=== PATIENT | female | born 1980 | race Caucasian/White ===

== ENCOUNTER 2020-07-18 20:58 | Emergency (ER) | payer OTHER ==
[~2020-07-18] VITALS: Ht 177.8 cm; Wt 112.1 kg
[~2020-07-18 20:58] MED LIST: ALBU2.5V5 IH; ALBU2.5V8 INH; EXCEDRIN MIGRAINE PO; FLUT1DIS3 INH; HYDR-3165 PO; HYDR1TAB10 PO; LISI10TA16 PO; LOSA50TA86 PO; PANT40TA6 PO; SERT100T PO
--- NOTE | 2020-07-18 21:17 | PHYS DOC ---
Past History Past Medical History: Arthritis, Asthma, Bipolar, GERD, Hypertension, Migraines, Other Past Surgical History: , Tubal ligation, Other Smoking: Less than 1pk/day Alcohol Use: Occasionally Drug Use: None Adult General Chief Complaint Chief Complaint: WRIST PAIN HPI HPI Patient is a 40-year-old female who presents with left wrist pain. States she works at [employer], and was packing some bags earlier this morning about 1030 and began to have left wrist pain. States that the pain is approximately 5 out of 10, dull and achy in nature and feels it down in her hand. Denies any traumas. Review of Systems Review of Systems Review of systems otherwise unremarkable except noted in HPI Allergies Allergies Allergies Coded Allergies Type Severity Reaction Last Updated Verified Penicillins Allergy Severe 07/18/20 Yes shellfish derived Allergy Severe Swelling 04/14/13 Yes topiramate Adverse Reaction Severe other 04/14/13 Yes Physical Exam Physical Exam Constitutional: Well developed, well nourished, no acute distress, non-toxic appearance. [] Extremities: No tenderness, no cyanosis, no clubbing, ROM intact, no edema. [] Neurologic: Alert and oriented X 3, normal motor function, normal sensory function, no focal deficits noted. [] Psychologic: Affect normal, judgement normal, mood normal. [] EKG EKG [] Radiology/Procedures Radiology/Procedures [] Heart Score C/O Chest Pain: No Risk Factors: Risk Factors: DM, Current or recent (<one month) smoker, HTN, HLP, family history of CAD, obesity. Risk Scores: Risk Factors: DM, Current or recent (<one month) smoker, HTN, HLP, family history of CAD, obesity. Course & Med Decision Making Course & Med Decision Making Patient is a 40-year-old female who presents with left wrist pain Vital signs not concerning. Physical exam noted above. Given Tylenol, ibuprofen and ice pack. Imaging not concerning. Discussed pain management at home. Placed in wrist brace for comfort. Advised to follow-up with primary care physician sometime this week for a follow-up visit. Gave return precautions to the ED. Patient grateful, verbalized understanding and agreed with plan of discharge. [] Dragon Disclaimer Dragon Disclaimer This electronic medical record was generated, in whole or in part, using a voice recognition dictation system. Departure Departure: Impression: Primary Impression: Wrist pain Disposition: 01 DC HOME SELF CARE/HOMELESS Condition: IMPROVED Referrals: JERROD NIEVES MD (PCP) Patient Instructions: RICE - Routine Care for Injuries Additional Instructions: Please read the attached information. Please begin Tylenol, ibuprofen and ice regimen. You are given a wrist brace for pain control and stability. Please wear your wrist brace during the day and during activities to supply support. Please call your primary care physician first thing in the morning to set up a follow-up visit within the next week to discuss your ED visit and need for further evaluation and treatment. Please come back to the ED with new or concerning symptoms. CHRISTINE SALOMON MD Jul 18, 2020 21:17
[2020-07-18] MEDS ORDERED: ACETAMINOPHEN 500 MG TABLET PO ONE (21:30)
[2020-07-18] MEDS ORDERED: IBUPROFEN 600 MG TABLET. PO ONE (21:30)
--- NOTE | 2020-07-18 22:09 | RAD ---
INDICATION: Reason: pain in the hand and wrist/ Spl. Instructions: / History: COMPARISON: None. IMPRESSION: Left hand: 3 views obtained. No acute fracture or dislocation. Mild degenerative changes including at the interphalangeal joints with mild osteophyte formation. Mild soft tissue swelling of dorsum of ortiz nd. Left wrist: 3 views obtained. No acute fracture or dislocation. There is some degenerative changes of the wrist including at the distal aspect of the carpal row radial aspect where there is some subchon dral cyst formation and mild hypertrophic changes. Scapholunate interval is mildly prominent at appro ximately 3-4 mm. Would correlate with symptoms in the region given that causes such as scapholunate l igament injury is not excluded given this finding. Electronically signed by: Alcon Kirk MD (07/18/2020 10:06 PM) [id number]
[2020-07-18 22:15] VITALS: BP 130/84
== END 2020-07-18 22:15 | disposition home or self-care (01) ==
LOC: ER 20:58
DX: M25.532 Pain in left wrist (principal); J45.909 Unspecified asthma, uncomplicated; K21.9 Gastro-esophageal reflux disease without esophagitis; I10 Essential (primary) hypertension; Z98.51 Tubal ligation status; Z88.0 Allergy status to penicillin; Z91.013 Allergy to seafood
CPT/HCPCS: 29125; 73110; 73130; 99284-25

== ENCOUNTER 2021-04-18 17:05 | Emergency (ER) | payer SELFPAY ==
[~2021-04-18] VITALS: Ht 177.8 cm; Wt 112.1 kg
--- NOTE | 2021-04-18 18:03 | PHYS DOC ---
Past History Past Medical History: Arthritis, Asthma, Bipolar, GERD, Hypertension, Migraines Past Surgical History: Cholecystectomy, , Tubal ligation, Other Additional Past Surgical Histo: LEFT FOOT Smoking: Less than 1pk/day Alcohol Use: None Drug Use: None General Adult EDM: Chief Complaint: VAGINAL BLEEDING HPI: HPI: Patient is a 41-year-old female who presents to the emergency department for heavy menstrual cycle that started this morning. Patient reports that she has had heavier vaginal bleeding with clots. She states that she has saturated 3 pads in about 6 hours. She is also reporting urinary frequency. She does not have an NUTRITIONAL SERVICES HOST and she does not take any control. She has a history of a tubal ligation. She states that her menstrual cycles on schedule. She denies any vomiting, fevers, lightheadedness, increased abdominal pain, dysuria. Review of Systems: Review of Systems: Constitutional: See HPI GI: See HPI : See HPI Neurologic: See HPI Allergies: Allergies: Allergies Coded Allergies Type Severity Reaction Last Updated Verified Penicillins Allergy Severe 07/18/20 Yes shellfish derived Allergy Severe Swelling 04/14/13 Yes topiramate Adverse Reaction Severe other 04/14/13 Yes Physical Exam: PE: Constitutional: Well developed, well nourished, no acute distress, non-toxic ap pearance. [] HENT: Normocephalic, atraumatic, bilateral external ears normal, oropharynx moist, no oral exudates, nose normal. [] Eyes: PERRL, EOMI, conjunctiva normal, no discharge. [] Neck: Normal range of motion, no stridor Cardiovascular:Heart rate regular rhythm, no murmur [] Lungs & Thorax: Bilateral breath sounds clear to auscultation [] Abdomen: Bowel sounds normal, soft, no tenderness, no masses, no pulsatile masses. [] Skin: Warm, dry, no erythema, no rash. [] Back: Normal range of motion Extremities: No tenderness, no cyanosis, no clubbing, ROM intact, no edema. [] Neurologic: Alert and oriented X 3, normal motor function, normal sensory function, no focal deficits noted. [] Psychologic: Affect normal, judgement normal, mood normal. [] Current Patient Data: Labs: Laboratory Tests Test 04/18/21 18:05 04/18/21 18:12 Urine Collection Type Clean catch Urine Color Brown Urine Clarity Cloudy Urine pH 5.5 Urine Specific Wh[place] >=1.030 Urine Protein Neg Urine Glucose (UA) Neg mg/dL Urine Ketones (Stick) 15 mg/dL Urine Blood Large Urine Nitrite Pos Urine Bilirubin Neg Urine Urobilinogen Dipstick 0.2 mg/dL Urine Leukocyte Esterase Neg Urine RBC Tntc /HPF Urine WBC 5-10 /HPF Urine Squamous Epithelial Cells Few /LPF Urine Bacteria Mod /HPF Sodium Level 135 mmol/L Potassium Level 3.5 mmol/L Chloride Level 100 mmol/L Carbon Dioxide Level 31 mmol/L Anion Gap 4 Blood Urea Nitrogen 13 mg/dL Creatinine 0.8 mg/dL Estimated GFR (Cockcroft-Gault) 78.7 Glucose Level 96 mg/dL Calcium Level 8.2 mg/dL Bedside Urine HCG, Qualitative hcg negative Vital Signs: Vital Signs Date Time Temp Pulse Resp B/P (MAP) Pulse Ox O2 Delivery O2 Flow Rate FiO2 04/18/21 17:08 97.6 71 18 108/85 (93) 98 Room Air EKG: EKG: [] Radiology/Procedures: Radiology/Procedures: []PROCEDURE: PELVIS COMPLETE EXAMINATION: US PELVIS COMPLETE INDICATION: 41 years, Female, heavy vaginal bleeding. COMPARISON: None TECHNIQUE: Trans abdominal and transvaginal ultrasound of the pelvis was performed with grayscale, spectral, and color doppler imaging. FINDINGS: UTERUS: Position: Anteverted, anteflexed Measures: 9.6 x 5.6 x 3.7 cm. Uterine/Endometrial Morphology: Nabothian cyst. Endometrial Thickness: 9.4 mm, within normal limits for premenopausal woman. RIGHT OVARY/ADNEXA: Measures: 3.5 x 2.3 x 2.5 cm. Right Ovarian Morphology: Unremarkable. There is a 2.0 cm simple paraovarian cyst. Right Ovarian Color And Spectral Doppler Flow: Normal. LEFT OVARY/ADNEXA: Measures: 3.2 x 1.5 x 2.0 cm. Left Ovarian Morphology: Unremarkable. There is a 1.8 cm simple paraovarian cyst. Left Ovarian Color And Spectral Doppler Flow: Normal. OTHER: Fluid/Cul-De-Sac: None. IMPRESSION: 1. No acute sonographic findings in the pelvis. 2. Small simple bilateral paraovarian cysts. Electronically signed by: Roma Hawthorne MD (04/18/2021 6:15 PM) [facility] DICTATED AND SIGNED BY: ROMA HAWTHORNE MD DATE: 04/18/211810 CC: JERROD NIEVES MD; BRADYJAVID L LICENSED MASSAGE THERAPIST ~MTH0 0 Heart Score: C/O Chest Pain: N/A Risk Factors: Risk Factors: DM, Current or recent (<one month) smoker, HTN, HLP, family history of CAD, obesity. Risk Scores: Score 0 - 3: 2.5% MACE over next 6 weeks - Discharge Home Score 4 - 6: 20.3% MACE over next 6 weeks - Admit for Clinical Observation Score 7 - 10: 72.7% MACE over next 6 weeks - Early Invasive Strategies Course & Med Decision Making: Course & Med Decision Making Pertinent Labs and Imaging studies reviewed. (See chart for details) Patient presents to the emergency department for heavier menses that started this morning. Patient reports saturating 3 pads since approximately 6 hours. Patient denies any increased abdominal pain. Work-up in the ER consisted of blood work and an ultrasound. Ultrasound showed ovarian cyst, no other acute findings but good blood flow to both ovaries. Patient has no concern for STIs and declined testing. Blood work is unremarkable. Urinalysis showed a urinary tract infection for she will be treated with an antibiotic. Patient vies to increase fluids and avoid bladder irritants. She is also advised to follow-up with an NUTRITIONAL SERVICES HOST, she was given information on an NUTRITIONAL SERVICES HOST to follow-up with. Patient's vital signs are stable and she is in no acute distress. I discussed with patient all findings and diagnostic testing as well as the need to follow-up with PCP for further evaluation and treatment or return to the ER if any new or worsening symptoms. Strict return precautions were also discussed at length. Patient voiced understanding and agreement with the plan. Patient is hemodynamically stable at the time of disposition. Dragon Disclaimer: Dragon Disclaimer: This electronic medical record was generated, in whole or in part, using a voice recognition dictation system. Departure Departure: Impression: Primary Impression: Menorrhagia Qualified Codes: N92.0 - Excessive and frequent menstruation with regular cycle Disposition: HOME / SELF CARE / HOMELESS Condition: GOOD Referrals: JERROD NIEVES MD (PCP) GREER NAIR MD Patient Instructions: Menorrhagia Additional Instructions: You are seen in the emergency department for heavy menses. Your blood work was unremarkable. Your urinalysis showed a urinary tract infection you will be treated with an antibiotic. Please start and finish the antibiotic completely. Increase your fluids and avoid bladder irritants like caffeine, alcohol or sugary beverages. Take NSAIDS for cramping. He will need to follow-up with an NUTRITIONAL SERVICES HOST regarding your ER visit. You can follow-up with the doctor that is attached on this discharge paperwork. Please return to the emergency department if you have increased vaginal bleeding where you are saturating more than 1 pad an hour, severe abdominal pain, lightheadedness/syncope, high fevers refractory to treatment, tractable nausea vomiting. Scripts Nitrofurantoin Monohyd/M-Cryst (MACROBID 100 MG CAPSULE) 100 Mg Capsule 1 CAP PO BID for uti for 5 Days, #10 CAP 0 Refills Prov: JAVID ABREU APRN 04/18/21 JAVID ABREU APRN Apr 18, 2021 18:03
--- NOTE | 2021-04-18 18:17 | RAD ---
EXAMINATION: US PELVIS COMPLETE INDICATION: 41 years, Female, heavy vaginal bleeding. COMPARISON: None TECHNIQUE: Trans abdominal and transvaginal ultrasound of the pelvis was performed with grayscale, sp ectral, and color doppler imaging. FINDINGS: UTERUS: Position: Anteverted, anteflexed Measures: 9.6 x 5.6 x 3.7 cm. Uterine/Endometrial Morphology: Nabothian cyst. Endometrial Thickness: 9.4 mm, within normal limits for premenopausal woman. RIGHT OVARY/ADNEXA: Measures: 3.5 x 2.3 x 2.5 cm. Right Ovarian Morphology: Unremarkable. There is a 2.0 cm simple paraovarian cyst. Right Ovarian Color And Spectral Doppler Flow: Normal. LEFT OVARY/ADNEXA: Measures: 3.2 x 1.5 x 2.0 cm. Left Ovarian Morphology: Unremarkable. There is a 1.8 cm simple paraovarian cyst. Left Ovarian Color And Spectral Doppler Flow: Normal. OTHER: Fluid/Cul-De-Sac: None. IMPRESSION: 1. No acute sonographic findings in the pelvis. 2. Small simple bilateral paraovarian cysts. Electronically signed by: Pamella Hawthorne MD (04/18/2021 6:15 PM) [facility]
[2021-04-18 18:21] LABS: BASO % 1 % (0-3); EOS # 0.1 x10^3/uL (0.0-0.7); EOS % 2 % (0-3); HEMATOCRIT 45.3 % (36.0-47.0); HEMOGLOBIN 15.1 g/dL (12.0-15.5); LYMPH # 2.2 x10^3/uL (1.0-4.8); LYMPH % 31 % (24-48); MEAN CORPUSCULAR HEMOGLOBIN 28 pg (25-35); MEAN CORPUSCULAR HGB CONC 33 g/dL (31-37); MEAN CORPUSCULAR VOLUME 83 fL (79-100); MONO # 0.6 x10^3/uL (0.0-1.1); MONO % 9 % (0-9); NEUT % 57 % (31-73); PLATELET COUNT 284 x10^3/uL (140-400); RED BLOOD COUNT 5.43 x10^6/uL (3.50-5.40); RED CELL DISTRIBUTION WIDTH 15.1 % (11.5-14.5); WHITE BLOOD COUNT 7.1 x10^3/uL (4.0-11.0)
[2021-04-18 18:30] LABS: CALCIUM 8.2 mg/dL (8.5-10.1); CREATININE 0.8 mg/dL (0.6-1.0); GFR 78.7; POTASSIUM 3.5 mmol/L (3.5-5.1)
[2021-04-18 18:55] LABS: COLOR,URINE BROWN
[2021-04-18 18:56] LABS: BACTERIA,URINE MOD /HPF (0-FEW); BILIRUBIN,URINE NEG (NEG); CLARITY,URINE CLOUDY; GLUCOSE,URINE NEG (NEG); NITRITE,URINE POS (NEG); RBC,URINE TNTC /HPF (0-2); SQUAMOUS EPITHELIAL CELL,UR FEW /LPF; UROBILINOGEN,URINE 0.2 mg/dL (0.2 mg/dL)
[2021-04-18] MEDS ORDERED: NITR100C62 PO (19:02)
[2021-04-18 19:15] VITALS: BP 110/82
== END 2021-04-18 19:26 | disposition home or self-care (01) ==
LOC: ER 17:05
DX: N92.0 Excessive and frequent menstruation with regular cycle (principal); M19.90 Unspecified osteoarthritis, unspecified site; J45.909 Unspecified asthma, uncomplicated; F31.9 Bipolar disorder, unspecified; K21.9 Gastro-esophageal reflux disease without esophagitis; I10 Essential (primary) hypertension; G43.909 Migraine, unspecified, not intractable, without status migrainosus; F17.200 Nicotine dependence, unspecified, uncomplicated; Z90.49 Acquired absence of other specified parts of digestive tract; Z98.890 Other specified postprocedural states; Z98.51 Tubal ligation status; Z88.0 Allergy status to penicillin; Z91.013 Allergy to seafood; Z88.8 Allergy status to other drugs, medicaments and biological substances
CPT/HCPCS: 36415; 76856; 80048; 81001; 81025; 85025; 87086; 99284